=== PATIENT | male | born 1960 | race Caucasian/White ===

== ENCOUNTER 2019-03-12 18:30 | Emergency (ER) | payer MEDICAID ==
[~2019-03-12] VITALS: Ht 165.1 cm; Wt 74.8 kg
[2019-03-12 18:40] VITALS: BP 115/68
--- NOTE | 2019-03-12 19:15 | NUR ---
5/M C/O LEFT FOOT /MALLEOLUS SWELLING & ERYTHEMA X 5 DAYS---PAINFUL TO BEAR WEIGHT STEPPED ON WATER SPRINKLER AND TWISTED ANKLE. WAS AMBULATORY FROM TRIAGE TO BED. UNABLE TO OBTAIN FSBS--STATES CRITICAL HIGH. LABS HAVE BEEN DRAWN AND URINE COLLECTED. GCS 15. PT STATES HAS NOT BEEN COMPLIANT WITH DM MEDS FOR LAST 5-6 MONTHS. VSS; BEDRAILS UP X1; FAMILY MEMBERS AT BEDSIDE; ERMD TO EVALUATE. HX--DM RX--?
--- NOTE | 2019-03-12 19:16 | NUR ---
RECIVED REPORT FROM BENNY ASHTON. TRANSFER OF CARE AT THIS TIME.
[2019-03-12 19:19] LABS: BASOPHILS % (AUTO) 0.7 % (0.0-2.0); EOSINOPHILS # (AUTO) 0.1 K/uL (0-0.4); EOSINOPHILS % (AUTO) 1.6 % (0.0-4.0); HEMATOCRIT 38.7 % (36-52); HEMOGLOBIN 13.6 g/dL (12.0-18.0); LYMPHOCYTES # (AUTO) 1.4 K/uL (2.0-11.5); LYMPHOCYTES % (AUTO) 26.3 % (20.5-51.1); MEAN CORPUSCULAR HEMOGLOBIN 36 pg (27-31); MEAN CORPUSCULAR HGB CONC 35 g/dL (33-37); MEAN CORPUSCULAR VOLUME 101.6 fL (80-94); MONOCYTES # (AUTO) 0.4 K/uL (0.8-1.0); MONOCYTES % (AUTO) 7.5 % (1.7-9.3); NEUTROPHILS # (AUTO) 3.5 K/uL (1.8-7.7); NEUTROPHILS % (AUTO) 63.9 % (42.2-75.2); PLATELET COUNT (AUTO) 150 K/uL (140-450); RED BLOOD CELL COUNT(AUTO) 3.81 MIL/uL (4.20-6.10); RED CELL DISTRIBUTION WIDTH 12.5 % (11.6-13.7); WHITE BLOOD COUNT (AUTO) 5.5 K/uL (4.8-10.8)
--- NOTE | 2019-03-12 19:22 | NUR ---
PT RYANO X4. FAMILY MEMBER'S SITTING AT BEDSIDE AND AWAITING MD EVALUATION.
--- NOTE | 2019-03-12 19:23 | NUR ---
REPORT TO TONY ASHTON. TRANSFER OF CARE AT THIS TIME.
[2019-03-12 19:29] LABS: PROTHROMBIN TIME 10.4 secs (10.8-13.4)
--- NOTE | 2019-03-12 19:30 | NUR ---
XRAY AT BEDSIDE.
[2019-03-12 19:36] LABS: ALBUMIN 3.4 g/dL (3.4-5.0); ANION GAP 18.1 (8-16); CARBON DIOXIDE 24.7 mmol/L (21-32); CREATININE 0.8 mg/dL (0.7-1.3); POTASSIUM 3.8 mmol/L (3.5-5.1); TOTAL BILIRUBIN 0.6 mg/dL (0.0-1.0)
--- NOTE | 2019-03-12 19:43 | NUR ---
DR. ODEN AT BEDSIDE.
[2019-03-12] MEDS ORDERED: INSULIN REGULAR, HUMAN 100 UNIT/ML VIAL IVP ONE (19:45)
[2019-03-12] MEDS ORDERED: NACL 0.9% 1,000 ML IV ONE (19:45)
--- NOTE | 2019-03-12 19:46 | NUR ---
IMPLEMENTED RICE INTERVENTIONS. FOOT ELEVATED ICE PACK APPLIED.
--- NOTE | 2019-03-12 20:09 | NUR ---
CRITICAL LAB OF GLUCOSE 664. DR. ODEN NOTIFIED AND GAVE ORDERS FOR NS 1000ML BOLUS + 12 UNITS OF HUMILIN R IVP. PT TOLERATES WELL AND WILL RE ASSESS IN 15 MIN.
--- NOTE | 2019-03-12 20:22 | NUR ---
REEVAL GLUCOSE 419. DR. ODEN NOTIFIED. WILL CONTINUE TO MONITOR. NO NEW ORDERS AT THIS TIME.
--- NOTE | 2019-03-12 20:30 | NUR ---
PT REPORTS IMPROVEMENT OF PAIN IN L FOOT/ANKLE FROM 10/25 TO 07/25. PT RESTING IN BED SITTING UPRIGHT. FAMILY AT BEDSIDE.
--- NOTE | 2019-03-12 21:45 | NUR ---
GLUCOSE REEVALUATED 260. NOTIFIED.
--- NOTE | 2019-03-12 22:00 | NUR ---
SHORT LEG SPLINT PLACED ON PT L LEG, WRAPPED WITH BARB WRAP. +CSM
--- NOTE | 2019-03-12 22:25 | NUR ---
PT GIVEN INSTRUCTION ON PROPER USE OF CRUTCHES. CRUTCHES FITTED TO PT HEIGHT AND ARM LENGTH. PT GIVEN INSTRUCTION ON SAFE USE, INCLUDING SITTING TO STANDING AND VICE VERSA, AND WALKING. PT DEMONSTRATED SAFE USE FOR APPROXIMATELY 40 FEET, STATED HE FELT COMFORTABLE WITH USE.
--- NOTE | 2019-03-12 22:25 | NUR ---
CRUTCH TRAINING REENFORCED BY RN. OBSERVED CORRECT TECHNIQUE.
--- NOTE | 2019-03-12 23:09 | NUR ---
Patient discharged with v/s stable. Written and verbal after care instructions given and explained. Patient alert, oriented and verbalized understanding of instructions. Ambulatory AND steady gait WITH CRUTCHES. All questions addressed prior to discharge. ID band removed. Patient advised to follow up with PMD. Rx of NAPROSYN, METFORMIN HYDROCHLORIDE given. Patient educated on indication of medication including possible reaction and side effects. Opportunity to ask questions provided and answered.
[2019-03-12 23:22] VITALS: BP 115/68
--- NOTE | 2019-03-24 09:13 | NUR ---
Late entry. Confirmed with RN that 0.9 NS IV completed at 2100
== END 2019-03-12 23:22 | disposition home or self-care (01) ==
LOC: MED 18:30
DX: S82.62XA Displaced fracture of lateral malleolus of left fibula, initial encounter for closed fracture (principal); E11.65 Type 2 diabetes mellitus with hyperglycemia; W19.XXXA Unspecified fall, initial encounter; Y93.89 Activity, other specified; Y92.89 Other specified places as the place of occurrence of the external cause; Y99.8 Other external cause status
CPT/HCPCS: 29515; 36415; 36600; 73610; 73630; 80053; 85025; 85610; 96361; 96374; 99284; J1815; J7030

== ENCOUNTER 2020-06-29 08:17 | Emergency (ER) | payer MEDICAID ==
[~2020-06-29] VITALS: Ht 165.1 cm; Wt 66.2 kg
[2020-06-29 08:28] VITALS: BP 158/90
--- NOTE | 2020-06-29 08:30 | NUR ---
PT AMBULATED TO BED 11.
--- NOTE | 2020-06-29 08:34 | NUR ---
59/M presents to ED with complaints of left sided abdominal pain x3 days. Pt describes pain as burning sensation on the inside, radiating to right side, 06/25. Pt denies N/V/D. Denies fever or chills. Pt denies any other complaint at this time. Pt reports having hx DM but has not been compliant taking his prescriptions because he has not been able to pick them up. Pt former smoker. Also reports drinking approximately 3 beers daily. Denies any liver problems at this time. Pt placed in a gown, provided with warm blanket and placed in position of comfort. Waiting for ERMD evaluation. Surgical hx: appendectomy
[2020-06-29] MEDS ORDERED: ACETAMINOPHEN EXTRA STRENGTH 500 MG TAB PO ONE (08:40)
--- NOTE | 2020-06-29 09:00 | NUR ---
Consent for CT placed in chart.
[2020-06-29 09:05] LABS: BASOPHILS % (AUTO) 0.9 % (0.0-2.0); EOSINOPHILS # (AUTO) 0.1 K/uL (0-0.4); EOSINOPHILS % (AUTO) 2.5 % (0.0-4.0); HEMOGLOBIN 14.2 g/dL (12.0-18.0); MEAN CORPUSCULAR HEMOGLOBIN 36 pg (27-31); MEAN CORPUSCULAR HGB CONC 36 g/dL (33-37); MEAN CORPUSCULAR VOLUME 98.9 fL (80-94); MONOCYTES # (AUTO) 0.4 K/uL (0.8-1.0); MONOCYTES % (AUTO) 11.6 % (1.7-9.3); NEUTROPHILS # (AUTO) 2.2 K/uL (1.8-7.7); PLATELET COUNT (AUTO) 96 K/uL (140-450); RED BLOOD CELL COUNT(AUTO) 3.95 MIL/uL (4.20-6.10); RED CELL DISTRIBUTION WIDTH 12.9 % (11.6-13.7); WHITE BLOOD COUNT (AUTO) 3.8 K/uL (4.8-10.8)
[2020-06-29 09:11] LABS: APPEARANCE,URINE CLEAR (CLEAR); BILIRUBIN,URINE NEGATIVE (NEGATIVE); BLOOD, URINE NEGATIVE (NEGATIVE); COLOR,URINE YELLOW (YELLOW); LEUKOCYTE ESTERASE ,URINE NEGATIVE (NEGATIVE); NITRITE, URINE NEGATIVE (NEGATIVE); PH,URINE 6.5 (5.0-9.0); UGLUCOSE 3+ (NEGATIVE)
[2020-06-29 09:20] LABS: ALBUMIN 3.7 g/dL (3.4-5.0); ANION GAP 13.4 (8-16); CREATININE 0.6 mg/dL (0.6-1.3); POTASSIUM 3.4 mmol/L (3.5-5.1)
[2020-06-29 09:27] LABS: RBC,URINE 0-5 /HPF (0-5); WBC,URINE 0-5 /HPF (0-5)
--- NOTE | 2020-06-29 09:46 | NUR ---
CT AT BEDSIDE TAKING PT TO IMAGING.
[2020-06-29] MEDS ORDERED: ALUMINUM HYD/MAG/SIMETHICONE 30 ML, DICYCLOMINE HCL LIQUID 20 MG, LIDOCAINE VISCOUS 2% ... PO ONE ×3 (10:25)
[2020-06-29] MEDS ORDERED: SUCR1TAB35 PO (10:36)
[2020-06-29] MEDS ORDERED: ALUM355S59 PO (10:36)
[2020-06-29] MEDS ORDERED: FAMO-90 PO (10:36)
[2020-06-29] MEDS ORDERED: LIDOCAINE VISCOUS 2% 20 ML UDC ONE (10:37)
[2020-06-29] MEDS ORDERED: DICYCLOMINE HCL LIQUID 10 MG/5 ML UDC ONE (10:37)
[2020-06-29] MEDS ORDERED: ALUMINUM HYD/MAG/SIMETHICONE 30 ML UDC ONE (10:37)
--- NOTE | 2020-06-29 11:28 | NUR ---
Patient discharged with v/s stable. Written and verbal after care instructions given and explained. Patient alert, oriented and verbalized understanding of instructions. Ambulatory with steady gait. All questions addressed prior to discharge. ID band removed. Patient advised to follow up with PMD. Rx of MAG HYDROX, FAMOTIDINE, SUCRAFATE given. Patient educated on indication of medication including possible reaction and side effects. Opportunity to ask questions provided and answered.
[2020-06-29 11:36] VITALS: BP 158/90
--- NOTE | 2020-06-29 11:36 | NUR ---
59 Y/O M BIB SELF FROM HOME, PATIENT PRESENTS TO ED WITH ABD PAIN FOR 3 DAYS IN L QUADRANTS; SKIN IS PINK/WARM/DRY; AAOX4 WITH EVEN AND STEADY GAIT; LUNGS CLEAR BL; HR EVEN AND REGULAR; PT DENIES ANY FEVER, CP, SOB, OR COUGH AT THIS TIME; PATIENT STATES PAIN OF 7/10 AT THIS TIME; VSS; PATIENT POSITIONED FOR COMFORT; HOB ELEVATED; BEDRAILS UP X2; BED DOWN. ER MD MADE AWARE OF PT STATUS. PMH: DM2 RX: NON COMPLIANT TERESA
== END 2020-06-29 11:16 | disposition home or self-care (01) ==
LOC: MED 08:17
DX: R10.9 Unspecified abdominal pain (principal); E11.9 Type 2 diabetes mellitus without complications; Z90.49 Acquired absence of other specified parts of digestive tract
CPT/HCPCS: 36415; 74177; 80053; 81001; 82150; 83690; 85025; 99285; Q9967

== ENCOUNTER 2020-12-05 13:50 | Emergency (ER) | payer MEDICAID ==
[~2020-12-05] VITALS: Ht 165.1 cm; Wt 59.9 kg
[~2020-12-05 13:50] MED LIST: ALUM355S59 PO; FAMO-90 PO; SUCR1TAB35 PO
[2020-12-05 14:27] VITALS: BP 124/87
--- NOTE | 2020-12-05 14:33 | NUR ---
Pt ambulated to bed 11.
--- NOTE | 2020-12-05 14:45 | NUR ---
60 Y/O MALE C/O RLQ ABDOMINAL THAT RADIATES TO BACK X4 DAYS. DENIES N/V/D. +CONSTIPATION X4 DAYS. DENIES DYSURIA PMH: DM NKDA
[2020-12-05] MEDS ORDERED: KETOROLAC 30 MG/ML VIAL IVP ONE (15:00)
[2020-12-05] MEDS ORDERED: NACL 0.9% 1,000 ML IV SCH (15:00)
--- NOTE | 2020-12-05 15:20 | NUR ---
Patient transported to CT by Wheelchair
[2020-12-05 15:27] LABS: BASOPHILS % (AUTO) 0.3 % (0.0-2.0); EOSINOPHILS # (AUTO) 0.1 K/uL (0-0.4); EOSINOPHILS % (AUTO) 1.6 % (0.0-4.0); HEMATOCRIT 33.8 % (36-52); LYMPHOCYTES # (AUTO) 1.5 K/uL (2.0-11.5); LYMPHOCYTES % (AUTO) 27.4 % (20.5-51.1); MEAN CORPUSCULAR HEMOGLOBIN 34 pg (27-31); MEAN CORPUSCULAR HGB CONC 35 g/dL (33-37); MEAN CORPUSCULAR VOLUME 94.6 fL (80-94); MONOCYTES # (AUTO) 0.3 K/uL (0.8-1.0); MONOCYTES % (AUTO) 6.1 % (1.7-9.3); NEUTROPHILS # (AUTO) 3.6 K/uL (1.8-7.7); NEUTROPHILS % (AUTO) 64.6 % (42.2-75.2); PLATELET COUNT (AUTO) 171 K/uL (140-450); RED BLOOD CELL COUNT(AUTO) 3.58 MIL/uL (4.20-6.10); RED CELL DISTRIBUTION WIDTH 14.6 % (11.6-13.7); WHITE BLOOD COUNT (AUTO) 5.5 K/uL (4.8-10.8)
--- NOTE | 2020-12-05 15:30 | NUR ---
Pt returned from CT by wheelchair. Placed back onto threat monitoring analyst.
[2020-12-05 15:48] LABS: ALBUMIN 4.1 g/dL (3.4-5.0); ANION GAP 10.3 (8-16); CARBON DIOXIDE 28.4 mmol/L (21-32); CREATININE 0.9 mg/dL (0.6-1.3); POTASSIUM 3.7 mmol/L (3.5-5.1); TOTAL BILIRUBIN 0.7 mg/dL (0.0-1.0)
--- NOTE | 2020-12-05 16:40 | NUR ---
Dr. Rios is evaluating patient at bedside.
[2020-12-05 16:44] VITALS: BP 115/71
[2020-12-05] MEDS ORDERED: MIRABULK PO (16:51)
[2020-12-05] MEDS ORDERED: IBUP-2213 PO (16:51)
[2020-12-05] MEDS ORDERED: OMEP40EC24 PO (16:51)
[2020-12-05] MEDS ORDERED: MAGN1.7529 PO (16:51)
--- NOTE | 2020-12-05 17:01 | NUR ---
Patient discharged with v/s stable. Written and verbal after care instructions given and explained. Patient alert, oriented and verbalized understanding of instructions. Ambulatory with steady gait. All questions addressed prior to discharge. ID band removed. Patient advised to follow up with PMD. Rx of Ibuprofen, Mag Citrate, Miralax, Prilosec given. Patient educated on indication of medication including possible reaction and side effects. Opportunity to ask questions provided and answered.
== END 2020-12-05 17:01 | disposition home or self-care (01) ==
LOC: MED 13:50
DX: K59.00 Constipation, unspecified (principal); E11.9 Type 2 diabetes mellitus without complications; F17.200 Nicotine dependence, unspecified, uncomplicated; Z79.899 Other long term (current) drug therapy; Z98.890 Other specified postprocedural states
CPT/HCPCS: 36415; 74176; 80053; 81002; 83690; 85025; 96361; 96374; 99284; J1885; J7030

== ENCOUNTER 2021-10-21 15:18 | Emergency (ER) | payer MEDICAID ==
[~2021-10-21] VITALS: Ht 165.1 cm; Wt 68.9 kg
[~2021-10-21 15:18] MED LIST changes: +IBUP-2213 PO; +MAGN296S2 PO; +MIRABULK PO; +OMEP40EC24 PO
--- NOTE | 2021-10-21 15:22 | NUR ---
PATIENT BIBA TO BED 10.
[2021-10-21] MEDS ORDERED: NALOXONE 0.4 MG/ML VIAL IVP ONE (15:25)
[2021-10-21 15:28] VITALS: BP 112/68
--- NOTE | 2021-10-21 15:30 | NUR ---
61 y/o male armond from [facility], pt presents to ed with aloc, last known well time was 1200 10/21/21 when pt walked out his rehab facility to smoke a cigarette. on scene, amr reports pt was hypotensive at 80/50 and was given ns 0.9 500 ml of fluids through iv 20g right hand. bs was 130. skin is pink/warm/dry, pt hard to arouse upon arrival, unable to ambulate at this time. lungs clear bl, heart rate even and regular. facility denies any fever, cp, sob, or cough at this time. patient positioned for comfort. hob elevated. bed down. ermd made aware of pt. pmh: right femur fx, falls, dm2, alcoholic cirrhosis of liver without ascites, nutritional anemia, alcoholic dependence, gerd nka med: see list
--- NOTE | 2021-10-21 15:34 | NUR ---
TAKEN TO CT VIA RL
--- NOTE | 2021-10-21 15:52 | NUR ---
LAB AT BEDSIDE
[2021-10-21 16:09] LABS: BASOPHILS % (AUTO) 0.3 % (0.0-2.0); EOSINOPHILS # (AUTO) 0.2 K/uL (0-0.4); EOSINOPHILS % (AUTO) 1.9 % (0.0-4.0); HEMATOCRIT 33.3 % (36-52); HEMOGLOBIN 11.6 g/dL (12.0-18.0); LYMPHOCYTES # (AUTO) 2.9 K/uL (2.0-11.5); LYMPHOCYTES % (AUTO) 34.3 % (20.5-51.1); MEAN CORPUSCULAR HEMOGLOBIN 33 pg (27-31); MEAN CORPUSCULAR HGB CONC 35 g/dL (33-37); MEAN CORPUSCULAR VOLUME 94.4 fL (80-94); MONOCYTES # (AUTO) 0.5 K/uL (0.8-1.0); NEUTROPHILS # (AUTO) 4.9 K/uL (1.8-7.7); NEUTROPHILS % (AUTO) 57.5 % (42.2-75.2); PLATELET COUNT (AUTO) 166 K/uL (140-450); RED BLOOD CELL COUNT(AUTO) 3.53 MIL/uL (4.20-6.10); WHITE BLOOD COUNT (AUTO) 8.5 K/uL (4.8-10.8)
--- NOTE | 2021-10-21 16:12 | NUR ---
# 16 FR Urinary catheter inserted utilizing sterile technique. Immediate return of 150 ml gemini, clear urine noted. Urine sample collected and sent to lab. Pt tolerated procedure well.
[2021-10-21 16:30] LABS: ALBUMIN 3.2 g/dL (3.4-5.0); ANION GAP 14.7 (8-16); ASPARTATE AMINOTRANSFERASE 13 U/L (15-37); CARBON DIOXIDE 24.3 mmol/L (21-32); CHLORIDE 104 mmol/L (98-107); CREATININE 0.9 mg/dL (0.6-1.3); GFR ARICAN-AMERICAN 110 mL/min (>90); GLUCOSE 152 mg/dL (74-106); SODIUM SERUM 140 mmol/L (136-145); TOTAL BILIRUBIN 0.5 mg/dL (0.0-1.0); UREA NITROGEN, BLOOD 15 mg/dL (7-18)
[2021-10-21 16:32] LABS: PROTHROMBIN TIME 10.7 secs (10.8-13.4)
[2021-10-21 16:36] LABS: APPEARANCE,URINE CLEAR (CLEAR); BILIRUBIN,URINE NEGATIVE (NEGATIVE); BLOOD, URINE NEGATIVE (NEGATIVE); COLOR,URINE YELLOW (YELLOW); LEUKOCYTE ESTERASE ,URINE NEGATIVE (NEGATIVE); NITRITE, URINE NEGATIVE (NEGATIVE); UGLUCOSE 2+ (NEGATIVE)
[2021-10-21 16:51] LABS: BARBITURATE, URINE NEGATIVE ng/ml (NEG <=200)
[2021-10-21 16:52] LABS: BENZODIAZEPINE, URINE POSITIVE ng/mL (NEG <=200); CANNABINOID, URINE NEGATIVE ng/mL (NEG <=50); COCAINE, URINE NEGATIVE ng/mL (NEG <=300); OPIATE, URINE NEGATIVE ng/mL (NEG <=2000); PHENCYCLIDINE SCREEN,URINE NEGATIVE ng/mL (NEG <=25)
[2021-10-21] MEDS ORDERED: KCL 20 MEQ/WATER INJ PREMIX 100 ML IV ONE (17:25)
--- NOTE | 2021-10-21 18:40 | NUR ---
spoke with Karen ASHTON for report and transport back to facility, rn states we need to call ambulance for transport back.
--- NOTE | 2021-10-21 19:25 | NUR ---
Pt report given to Solo ASHTON. Transfer of care at this time.
--- NOTE | 2021-10-21 20:54 | NUR ---
CONTACTED PT'S SON TO BRING PT BACK TO HIS FACILITY (PER PT REQUEST) POC: ISAIAH MURPHY
[2021-10-21 21:53] VITALS: BP 102/64
--- NOTE | 2021-10-21 21:53 | NUR ---
Patient discharged with v/s stable. Written and verbal after care instructions given and explained. Patient verbalized understanding. Wheel Chair Assisted with to car. All questions addressed prior to discharge. Advised to follow up with PMD. VSS, A/OX4, UNLABORED BREATHING, AND CALM DEMEANOR.
--- NOTE | 2021-10-21 22:03 | NUR ---
GAVE REPORT TO POLI MARTINEZ. INFORMED NURSE THAT PT WOULD BE RETURNING VIA POV BY DAUGHTER.
== END 2021-10-21 21:53 ==
LOC: MED 15:18
DX: R41.82 Altered mental status, unspecified (principal); I10 Essential (primary) hypertension; E11.9 Type 2 diabetes mellitus without complications; F17.210 Nicotine dependence, cigarettes, uncomplicated; F19.90 Other psychoactive substance use, unspecified, uncomplicated; Z79.4 Long term (current) use of insulin; Z79.899 Other long term (current) drug therapy; Z98.890 Other specified postprocedural states
CPT/HCPCS: 36415; 70450; 71045; 80053; 80305; 81003; 82140; 84484; 85025; 85610; 85730; 86886; 86900; 86901; 93005; 96361; 96374; 99285; J2310; J3480; Q0092